=== PATIENT | female | born 1980 | race Caucasian/White ===

== ENCOUNTER 2020-01-04 11:09 | Outpatient (REF) | payer BC, SELFPAY ==
[2020-01-04 14:13] LABS: MANUAL DIFF FLAG NO
[2020-01-04 14:19] LABS: Basophils Absolute Auto 0.1 X10*3/uL (0.0-0.2); Basophils Percent Auto 0.6 % (0-2); Eosinophils Absolute Auto 0.4 X10*3/uL (0.0-0.4); Eosinophils Percent Auto 4.4 % (0-4); Hematocrit 40.6 % (37-47); Hemoglobin 13.2 g/dl (12.0-16.0); Imm Gran Abs Auto 0.02 X10*3/uL (0.00-0.03); Imm Gran Pct Auto 0.2 % (0.0-0.4); Lymphocytes Absolute Auto 2.2 X10*3/uL (1.2-4.9); Lymphocytes Percent Auto 26.1 % (20-40); Mean Corpuscular HGB Conc 32.5 g/dl (31.0-35.0); Mean Corpuscular Hemoglobin 30.6 pg (27.0-33.0); Mean Platelet Volume 10.7 fL (9.4-12.3); Monocytes Absolute Auto 0.8 X10*3/uL (0.1-1.2); Monocytes Percent Auto 9.4 % (2-11); Neutrophils Absolute Auto 5.1 X10*3/uL (2.0-8.3); Neutrophils Percent Auto 59.3 % (45-73); Platelet Count 294 X10*3/uL (160-400); Red Blood Count 4.32 X10*6/uL (4.20-5.50); White Blood Count 8.6 X10*3/uL (4.8-10.8)
[2020-01-04 15:14] LABS: Alanine Aminotransferase 17 U/L (0-31); Albumin Level 4.5 g/dL (3.5-5.0); Alkaline Phosphatase 93 U/L (39-117); Anion Gap 10 (12-20); Aspartate Amino Transferase 19 U/L (5-31); Bilirubin Direct 0.2 mg/dL (0.0-0.5); Bilirubin Total 0.5 mg/dL (0.0-1.0); Blood Urea Nitrogen 16 mg/dL (9-16); C Reactive Protein 0.24 mg/dL (< or = 0.50); Carbon Dioxide 28 mmol/L (22-29); Chloride 104 mmol/L (96-108); Estimated Glomerular Filt Rate > 60; Glucose Random 71 mg/dL (60-115); Potassium 4.2 mmol/l (3.3-5.1); Sodium 138 mmol/L (135-145); Total Protein 7.6 g/dL (6.5-8.0)
[2020-01-04 15:18] LABS: Erythrocyte Sedimentation Rate 18 MM/HR (0-20)
[2020-01-04 15:35] LABS: Thyroid Stimulating Hormone 0.86 mIU/mL (0.32-4.0)
[2020-01-04 15:49] LABS: T4 Thyroxine 9.7 ug/dL (4.5-12.0)
== END 2020-01-04 11:10 | disposition home or self-care (01) ==
LOC: HO.HMGCLDS 11:09
PROVIDERS: PCP Family Medicine; Visit Provider Internal Medicine
DX: K50.80 Crohn's disease of both small and large intestine without complications (principal); R19.7 Diarrhea, unspecified
CPT/HCPCS: 36415; 80048; 80076; 84436; 84443; 85025; 85652; 86140

== ENCOUNTER 2021-03-23 09:08 | Outpatient (REF) | payer BC, SELFPAY ==
[2021-03-23 09:27] LABS: MANUAL DIFF FLAG NO
[2021-03-23 09:55] LABS: Basophils Absolute Auto 0.1 X10*3/uL (0.0-0.2); Basophils Percent Auto 0.5 % (0-2); Eosinophils Absolute Auto 0.6 X10*3/uL (0.0-0.4); Eosinophils Percent Auto 5.9 % (0-4); Hematocrit 43.9 % (37.0-47.0); Hemoglobin 14.7 g/dl (12.0-16.0); Imm Gran Abs Auto 0.03 X10*3/uL (0.00-0.03); Imm Gran Pct Auto 0.3 % (0.0-0.4); Lymphocytes Absolute Auto 2.4 X10*3/uL (1.2-4.9); Lymphocytes Percent Auto 25.5 % (20-40); Mean Corpuscular HGB Conc 33.5 g/dl (31.0-35.0); Mean Corpuscular Hemoglobin 30.4 pg (27.0-33.0); Mean Corpuscular Volume 90.7 fL (80.0-98.0); Monocytes Absolute Auto 0.7 X10*3/uL (0.1-1.2); Monocytes Percent Auto 7.6 % (2-11); Neutrophils Absolute Auto 5.7 x10*3/uL (2.0-8.3); Neutrophils Percent Auto 60.2 % (45-73); Platelet Count 279 X10*3/uL (160-400); Red Blood Count 4.84 X10*6/uL (4.20-5.50); Red Cell Distribution Width 12.9 % (11.0-16.0); White Blood Count 9.4 X10*3/uL (4.8-10.8)
[2021-03-23 10:21] LABS: Alanine Aminotransferase 30 U/L (0-31); Albumin Level 4.4 g/dL (3.5-5.0); Alkaline Phosphatase 121 U/L (39-117); Anion Gap 10 (12-20); Aspartate Amino Transferase 30 U/L (5-31); Bilirubin Direct 0.2 mg/dL (0.0-0.5); Bilirubin Total 0.8 mg/dL (0.0-1.0); Blood Urea Nitrogen 16 mg/dL (9-16); Calcium 9.5 mg/dL (8.4-10.2); Carbon Dioxide 27 mmol/L (22-29); Chloride 105 mmol/L (96-108); Estimated Glomerular Filt Rate > 60; Glucose Random 83 mg/dL (60-115); Iron 123 mcg/dL (30-160); Percent Iron Saturation 32 % (15-50); Potassium 3.9 mmol/L (3.3-5.1); Sodium 138 mmol/L (135-145); Total Iron Binding Capacity 382 mcg/dL (228-428); Unsaturated Iron Binding 259 ug/dL
[2021-03-23 10:40] LABS: Ferritin 33 ng/mL (10-122)
[2021-03-23 10:54] LABS: Folate > 20.0 ng/mL (> or = 4.0); Vitamin B12 1145 pg/mL (200-900)
== END 2021-03-23 09:09 | disposition home or self-care (01) ==
LOC: HO.LAB 09:08
PROVIDERS: PCP Family Medicine; Visit Provider Internal Medicine
DX: K50.80 Crohn's disease of both small and large intestine without complications (principal)
CPT/HCPCS: 36415; 80048; 80076; 82607; 82728; 82746; 83540; 85025

== ENCOUNTER 2023-01-01 07:33 | Outpatient (REF) | payer BC, SELFPAY ==
[2023-01-01 11:35] LABS: MANUAL DIFF FLAG NO
[2023-01-01 11:49] LABS: Basophils Absolute Auto 0.1 X10*3/uL (0.0-0.2); Basophils Percent Auto 0.7 % (0-2); Eosinophils Absolute Auto 0.4 X10*3/uL (0.0-0.4); Eosinophils Percent Auto 4.9 % (0-4); Hematocrit 41.1 % (37.0-47.0); Hemoglobin 13.9 g/dl (12.0-16.0); Imm Gran Abs Auto 0.03 X10*3/uL (0.00-0.03); Imm Gran Pct Auto 0.3 % (0.0-0.4); Lymphocytes Absolute Auto 2.2 X10*3/uL (1.2-4.9); Lymphocytes Percent Auto 25.4 % (20-40); Mean Corpuscular HGB Conc 33.8 g/dl (31.0-35.0); Mean Corpuscular Hemoglobin 30.9 pg (27.0-33.0); Mean Corpuscular Volume 91.3 fL (80.0-98.0); Mean Platelet Volume 10.8 fL (9.4-12.3); Monocytes Absolute Auto 0.7 X10*3/uL (0.1-1.2); Monocytes Percent Auto 7.6 % (2-11); Neutrophils Absolute Auto 5.4 x10*3/uL (2.0-8.3); Neutrophils Percent Auto 61.1 % (45-73); Platelet Count 273 X10*3/uL (160-400); Red Cell Distribution Width 12.5 % (11.0-16.0); White Blood Count 8.8 X10*3/uL (4.8-10.8)
[2023-01-01 12:13] LABS: Alanine Aminotransferase 18 U/L (0-31); Albumin Level 4.2 g/dL (3.5-5.0); Alkaline Phosphatase 90 U/L (39-117); Anion Gap 13 (12-20); Aspartate Amino Transferase 22 U/L (5-31); Bilirubin Direct 0.2 mg/dL (0.0-0.5); Bilirubin Total 0.5 mg/dL (0.0-1.0); Blood Urea Nitrogen 15 mg/dL (9-16); Carbon Dioxide 23 mmol/L (22-29); Chloride 107 mmol/L (96-108); Estimated Glomerular Filt Rate > 60; Glucose Random 76 mg/dL (60-115); Iron 128 mcg/dL (30-160); Percent Iron Saturation 38 % (15-50); Sodium 139 mmol/L (135-145); Total Iron Binding Capacity 333 mcg/dL (228-428); Total Protein 7.5 g/dL (6.5-8.0); Unsaturated Iron Binding 205 ug/dL
[2023-01-01 12:32] LABS: Ferritin 21 ng/mL (10-250)
[2023-01-01 12:40] LABS: Folate 11.8 ng/mL (> or = 4.0); Vitamin B12 503 pg/mL (200-900)
== END 2023-01-01 07:34 | disposition home or self-care (01) ==
LOC: HO.HMGCLDS 07:33
PROVIDERS: PCP Nurse Practitioner Primary Care; Visit Provider Internal Medicine
DX: K50.80 Crohn's disease of both small and large intestine without complications (principal)
CPT/HCPCS: 36415; 80051; 80076; 82565; 82607; 82728; 82746; 82947; 83540; 84520; 85025

== ENCOUNTER 2023-01-06 06:25 | Day surgery (SDC) | payer BC, SELFPAY ==
--- NOTE | 2023-01-02 13:48 | P.CONAN_ITS ---
Documented by User: Evelina Nieves NP 01/02/23 13:51 HPI - Anesthesia Eval Consult details Narrative: 42yo F for Colonoscopy PMFSH Past Medical History Medical History STEPHY (iron deficiency anemia) Crohn's disease Ulcerative colitis Surgical History Surgical History History of ERCP Hx of section Hx of colonoscopy Social History Social History Patient Tobacco Use Status: Never used Tobacco Use of substances other than those prescribed or required for medical reasons: No Are you DNR?: No Advance Directives: No Advance Directives Information Provided: Yes Recently lost weight without trying: No Nutrition Risks: No Nutritional Risk Meds Allergies Allergy/AdvReac Type Severity Reaction Status Date / Time latex [Latex] Allergy Intermediate RASH Unverified 12/09/19 16:23 Home Medications Medication Instructions Recorded Confirmed Last Taken Type Fish Oil 01/02/23 Unknown History iron 01/02/23 Unknown History mesalamine 500 mg capsule,extended 1,000 mg PO QID 01/02/23 01/02/23 Unknown History release (Pentasa) norethindrone (contraceptive) 0.35 0.35 mg PO DAILY 01/02/23 01/02/23 Unknown History mg tablet (Incassia) Exam Exam Date and Time: January 02, 2023 1348 Assessment and Plan Assessment Anesthesia Assessment: Chart Reviewed Documented by User: Airam De La Cruz MD 01/06/23 07:58 PMF Past Medical History Medical History STEPHY (iron deficiency anemia) Crohn's disease Ulcerative colitis Family History Family history of problems with anesthesia: No Surgical History Surgical History History of ERCP Hx of section Hx of colonoscopy History of Problems with Anesthesia: No Social History Social History Patient Tobacco Use Status: Never used Tobacco Use of substances other than those prescribed or required for medical reasons: No Are you DNR?: No Advance Directives: No Advance Directives Information Provided: Yes Recently lost weight without trying: No Nutrition Risks: No Nutritional Risk Meds Allergies Allergy/AdvReac Type Severity Reaction Status Date / Time latex [Latex] Allergy Intermediate RASH Unverified 12/09/19 16:23 Home Medications Medication Instructions Recorded Confirmed Last Taken Type Fish Oil 01/02/23 Unknown History iron 01/02/23 Unknown History mesalamine 500 mg capsule,extended 1,000 mg PO QID 01/02/23 01/02/23 Unknown History release (Pentasa) norethindrone (contraceptive) 0.35 0.35 mg PO DAILY 01/02/23 01/02/23 Unknown History mg tablet (Incassia) Exam Height,Weight and Vital Signs: Height 5 ft 7 in Weight 52.163 kg Vital Signs Temp Pulse Resp BP Pulse Ox O2 Del Method 01/06/23 06:47 97.5 F 98 17 106/75 97 Room Air Pertinent Lab Results Pertinent Lab Results: Lab Results 01/06/23 Range/Units 07:40 Urine Test NEGATIVE (NEGATIVE) Airway Mallampati Class: I TM Dist: >3cm Neck ROM: Full Loose/Missing/Broken Teeth: No (Denies broken, loose, missing teeth) Heart: RRR Lungs: CTAB Assessment and Plan Assessment Anesthesia Assessment: Anesthesia Plan Discussed Final Anesthetic Review Family History of Problems with Anesthesia: No History of Problems with Anesthesia: No NPO: Yes ASA Class: II Final Preanesthetic Review: No Changes in Pt Med Stat, Meds/Allgs Chart Revie wed, Consent Obtained/Reviewed and Anes Risks/Benef Reviewed Patient Risk: Low Procedure Risk: Low Assessment/Block/Sedation in SS: Assess/Block/Sedation-SS Anesthetic Plan Anesthetic Plan: MAC: Disposition: Standard PACU
--- OUTSIDE RECORDS SUMMARY | 2023-01-06 06:28 | XMS_ITS | Continuity of Care Document ---
Author Name Unknown Organization [facility] Justin lt Address [address] [place] [address]- Care Team Providers Care Animal Herder Name Role Phone Chava TAYLOR, Elvia Yadav Primary Care Physician [phone] Encounter [facility] [place] [place] [id number] Date(s): 09/23/22 - 10/23/22 [facility] Adult [address] [place] [address]- Attending Physician: AdmtrYuliya Admitting Physician: Admtr, Ar8 Referring Physician: Admtr, Ar8 Allergies, Adverse Reactions, Alerts No Known Allergies Immunizations Given and Recorded Vaccine Date Status Refusal Reason tetanus/diphtheria/pertussis, acel(Tdap) 09/23/22 Given [id number] 12y+ bivalent booster vax 09/23/22 Given SARS-CoV-2 (COVID-19) mRNA BNT-162b2 vac 07/26/20 Given SARS-CoV-2 (COVID-19) mRNA BNT-162b2 vac 07/05/20 Given Medications Digestive Enzymes/Hyoscyamine/Phenyltoloxamin 0 Refills, Maintenance, 09/23/22 10:22:00 EDT, Partial fill upon patient request if the prescription is for a schedule II opioid drug. Start Date: 09/23/22 Status: Ordered Incassia 0.35 mg oral tablet 1 tablet = 0.35 mg, By Mouth, Daily, 0 Refills, Maintenance, 09/23/22 10:22:00 EDT, Partial fill upon patient request if the prescription is for a schedule II opioid drug. Start Date: 09/23/22 Status: Ordered iron sulfate By Mouth, 0 Refills, Maintenance, 09/23/22 10:23:00 EDT, Partial fill upon patient request if the prescription is for a schedule II opioid drug. Start Date: 09/23/22 Status: Ordered melatonin 5 mg oral capsule 1 capsule = 5 mg, By Mouth, Daily at bedtime, 0 Refills, Maintenance, 09/23/22 10:23:00 EDT, Partial fill upon patient request if the prescription is for a schedule II opioid drug. Start Date: 09/23/22 Status: Ordered Misc Rx See Instructions, Refills 0, Maintenance, Blue green algae, 09/23/22 10:22:00 EDT, Supply Start Date: 09/23/22 Status: Ordered Misc Rx See Instructions, Refills 0, Maintenance, Sereni select DOTTIE, 09/23/22 10:25:00 EDT, Supply Start Date: 09/23/22 Status: Ordered Pentasa 500 mg oral capsule, extended release 2 capsule = 1,000 mg, By Mouth, 4 times a day, 0 Refills, Maintenance, 09/23/22 10:21:00 EDT, Partial fill upon patient request if the prescription is for a schedule II opioid drug. Start Date: 09/23/22 Status: Ordered Probiotic Formula By Mouth, Daily, 0 Refills, Maintenance, 09/23/22 10:23:00 EDT, Partial fill upon patient request if the prescription is for a schedule II opioid drug. Start Date: 09/23/22 Status: Ordered Problem List Condition Confirmation Course Effective Dates Status Health St atus Informant Crohn's disease Confirmed Active Depression, major, single episode, moderate Confirmed Active Encounter to establish care Confirmed Active Annual physical exam Confirmed Active Underweight Confirmed Active Social History Social History Type Response Smoking Status Never (less than 100 in lifetime) entered on: 09/25/22 Sex Laboratory * Event Display: Non Lab Results Authored Date: Patient Care team information Care Team Personnel Name: Elvia Larsen NP Position: [facility] PCO Associate Professional Member Role: PCP Address: Address: [address] [place] [address]- Care Team Related Persons Name: PAU MARINELLI Address: home [address] [place] [address] Name: ALEX MARINELLI Address: home [address] [place] [address]
--- OUTSIDE RECORDS SUMMARY | 2023-01-06 06:28 | XMS_ITS | Continuity of Care Document ---
Author Name Unknown Organization [facility] Address [address] [place] [address]- Care Team Providers Care Betting Clerks Name Role Phone Aris MA, Caren Yadav Primary Care Physician Unav ailable Encounter [facility] Date(s): 04/29/19 - 04/29/19 [place] [address]- [facility] Attending Physician: Silvia Dozier NP Allergies, Adverse Reactions, Alerts Substance Reaction Severity Status NKA Active
--- OUTSIDE RECORDS SUMMARY | 2023-01-06 06:28 | XMS_ITS | Patient Health Record ---
Author Name Unknown Organization [facility] Address [address] [place] [address] Care Team Providers Care Vehicle Fuel Systems Converter Name Role Phone DR. RANDALL ANSARI Primary Care Provider Unavail able Jw Vizcarra Unavailable [phone] ALLERGIES No Known Allergies RESULTS Component Value Reference Range Notes Complete Blood Count Auto Di ff Reviewed date:01/01/2023 09:13:59 PM Interpretation: Performing Lab:[facility], [address] [place] [phone] Notes/Report: White Blood Count 8.8 4.8-10.8 X10*3/uL Red Blood Count 4.50 4.20-5.50 X10*6/uL Hemoglobin 13.9 12.0-16.0 g/dl Hematocrit 41.1 37.0-47.0 % Mean Corpuscular Volume 91.3 80.0-98.0 fL Mean Corpuscular Hemoglobin 30.9 27.0-33.0 pg Mean Corpuscular HGB Conc 33.8 31.0-35.0 g/dl Red Cell Distribution Width 12.5 11.0-16.0 % Platelet Count 273 160-400 X10*3/uL Mean Platelet Volume 10.8 9.4-12.3 fL Neutrophils Percent Auto 61.1 45-73 % Imm Gran Pct Auto 0.3 0.0-0.4 % Lymphocytes Percent Auto 25.4 20-40 % Monocytes Percent Auto 7.6 2-11 % Eosinophils Percent Auto 4.9 0-4 % Basophils Percent Auto 0.7 0-2 % NRBC Pct Auto 0.0 0.0-0.2 /100WBC Neutrophils Absolute Auto 5.4 2.0-8.3 x10*3/u L Imm Gran Abs Auto 0.03 0.00-0.03 X10*3/uL Lymphocytes Absolute Auto 2.2 1.2-4.9 X10*3/u L Monocytes Absolute Auto 0.7 0.1-1.2 X10*3/uL Eosinophils Absolute Auto 0.4 0.0-0.4 X10*3/u L Basophils Absolute Auto 0.1 0.0-0.2 X10*3/uL NRBC Abs Auto 0.000 0.0-0.012 X10*3/uL Liver Panel Reviewed date:01/01/2023 09:14:22 PM Interpretation: Performing Lab:[facility], [address] [place] [phone] Notes/Report: Bilirubin Total 0.5 0.0-1.0 mg/dL Bilirubin Direct 0.2 0.0-0.5 mg/dL Aspartate Amino Transferase 22 5-31 U/L Alanine Aminotransferase 18 0-31 U/L Total Protein 7.5 6.5-8.0 g/dL Albumin Level 4.2 3.5-5.0 g/dL Alkaline Phosphatase 90 39-117 U/L Electrolytes Reviewed date:01/01/2023 09:14:48 PM Interpretation: Performing Lab:[facility], [address] [place] [phone] Notes/Report: Sodium 139 135-145 mmol/L Potassium 4.0 3.3-5.1 mmol/L Chloride 107 96-108 mmol/L Carbon Dioxide 23 22-29 mmol/L Anion Gap 13 12-20 Blood Urea Nitrogen Reviewed date:01/01/2023 09:14:57 PM Interpretation: Performing Lab:[facility], [address] [place] [phone] Notes/Report: Blood Urea Nitrogen 15 9-16 mg/dL Creatinine Reviewed date:01/01/2023 09:15:07 PM Interpretation: Performing Lab:[facility], [address] [place] [phone] Notes/Report: Creatinine 0.77 0.5-1.4 mg/dL Estimated Glomerular Filt Rate > 60 NOTE: For -Citizen Of The [place] individuals, multiply the result by 1.210. Chronic Kidney Disease: Estimated GFR < 60 mL/min/1.73m2 Severe Kidney Disease: Estimated GFR < 15 mL/min/1.73m2 Glucose Random Reviewed date:01/01/2023 09:15:16 PM Interpretation: Performing Lab:[facility], [address] [place] [phone] Notes/Report: Glucose Random 76 60-115 mg/dL IRON PROFILE Reviewed date:01/01/2023 09:15:28 PM Interpretation: Performing Lab:[facility], [address] [place] [phone] Notes/Report: Iron 128 30-160 mcg/dL Total Iron Binding Capacity 333 228-428 mcg/d L Percent Iron Saturation 38 15-50 % Unsaturated Iron Binding 205 Ferritin Reviewed date:01/01/2023 09:15:38 PM Interpretation: Performing Lab:[facility], [address] [place] [phone] Notes/Report: Ferritin 21 10-250 ng/mL Vitamin B12 and Folate Reviewed date:01/01/2023 09:18:35 PM Interpretation: Performing Lab:[facility], [address] [place] [phone] Notes/Report: Vitamin B12 503 200-900 pg/mL NORMAL 200-900 PG/ML INDETERMINATE 160-199 PG/ML DEFICIENT < 160 PG/ML Folate 11.8 > or = 4.0 ng/mL Reference Values: > or = 4.0 ng/mL < 4.0 ng/mL suggests folate deficiency Methotrexate, aminopterin and folinic acid (leucovorin) are chemotherapeutic agents whose molecular structures are similar to folate; therefore, the Elementary Esl Teacher folate assay cannot be used for patients using these drugs. REASON FOR REFERRAL No Information MEDICATIONS Medication SIG (Take, Route, Frequency, Duration) Notes Start Date End Date Status Norethindrone 0.35 MG 1 tablet Orally On ce a day for 28 day(s) Active Pentasa 500 MG 2 capsules Orally Fo ur times a day for 30 day(s) Active Iron Active Enzyme Active Ibuprofen PRN Not-Taking Fish Oil Active IMMUNIZATIONS Vaccine Route Administration Date Status Comme nts Influenza Unknown 02/10/2018 Administered Influenza Unknown 02/06/2021 Administered Influenza Unknown 05/04/2019 Refused SOCIAL HISTORY Sex Assigned At : Social History Observation Description Sex Assigned At Unknown Alcohol Screen Question Answer Notes Did you have a drink contain ing alcohol in the past year? Yes How often did you have a dri nk containing alcohol in the past year? Monthly or less (1 point) How many drinks did you have on a typical day when you were drinking in the past year? 1 or 2 drinks (0 point) How often did you have 6 or more drinks on one occasion in the past year? Never (0 point) Points 1 Interpretation Negative PROBLEMS Problem Type ICD Code Onset Dates Problem Status W/U Status Risk SNOMED Code Notes Problem Colon cancer screening (Z12.11) Active confirmed 179675547 Problem Encounter for screening for malignant neoplasm of colon (Z12.11) Active confirmed 662887971 Problem Diarrhea (R19.7) Active confirmed Diarr hea (81528033) Problem Crohn's disease of both small and large intestine without complications (K50.80) Active confirmed Crohn's disease of small AND large intestines (52366797) Problem Encounter for screening for malignant neoplasm of rectum (Z12.12) Active confirmed Screening fo r malignant neoplasm of rectum (663105899) Problem Crohns disease of both small and large intestine without complication (K50.80) Active confirmed 34504055 Problem Iron deficiency anemia due to chronic blood loss (D50.0) Active confirmed 35786047 Problem Abdominal pain, right upper quadrant (R10.11) Active confirmed 481436222 Problem Elevated alkaline phosphatase level (R74.8) Active confirmed 848434773 Encounters Encounter Location Date Provider Diagnosis [facility] [facility] [address] [place] [phone] 01/06/2023 Jw Vizcarra [facility] [address] [place] [phone] 09/10/2022 Jw Vizcarra Crohn's disease of both small and large intestine without complications K50.80 and Colon cancer screening Z12.11 [facility] [address] [place] [phone] 05/13/2022 Jw Vizcarra [facility] [address] [place] [phone] 12/31/2022 Jw Vizcarra [facility] [address] [place] [phone] 12/31/2022 Jw Vizcarra ASSESSMENTS Encounter Date Diagnosis Assessment Notes Treatment Notes Treatment Clinical Notes 09/10/2022 Colon cancer screening (ICD-10 - Z12.11) 09/10/2022 Crohn's disease of both small and large intestine without complications (ICD-10 - K50.80) Continue 2 Pentasa three times a day. PLAN OF TREATMENT Pending Test Test Name Order Date CHEM 7 PROFILE 03/06/2021 CHEM 7 PROFILE 08/27/2011 CHEM 7 PROFILE 09/10/2022 CHEM 7 PROFILE 01/04/2020 CHEM 7 PROFILE 01/03/2016 HEMOGLOBIN A1C (GLYCOHEMOGLOBIN) 018 LIVER PROFILE 01/04/2020 LIVER PROFILE 01/03/2016 LIVER PROFILE 09/10/2016 LIVER PROFILE 03/06/2021 LIVER PROFILE 08/27/2011 LIVER PROFILE 09/10/2022 LIVER PROFILE 05/08/2019 URIC ACID 07/29/2017 GGT 05/08/2019 T4 (THYROXINE) 01/04/2020 TSH (THYROID STIMULATING HORMONE) 2019 IRON + IBC (FE) 09/10/2016 IRON + IBC (FE) 01/09/2016 IRON + IBC (FE) 03/06/2021 IRON + IBC (FE) 09/10/2022 IRON + IBC (FE) 07/29/2017 FERRITIN 09/10/2016 FERRITIN 01/09/2016 FERRITIN 07/29/2017 CRP 07/29/2017 CRP 01/04/2020 CRP 09/10/2016 VITAMIN B12 AND FOLATE 07/29/2017 VITAMIN B12 AND FOLATE 03/06/2021 VITAMIN B12 AND FOLATE 01/09/2016 CBC w DIFF 09/10/2016 CBC w DIFF 01/03/2016 CBC w DIFF 07/29/2017 CBC w DIFF 08/27/2011 CBC w DIFF 01/04/2020 CBC w DIFF 09/10/2022 CBC w DIFF 03/06/2021 SED RATE (ESR) 01/04/2020 SED RATE (ESR) 09/10/2016 SED RATE (ESR) 07/29/2017 CORTISOL 07/29/2017 DHEA-SULFATE 07/29/2017 DHEA, UNCONJUGATED 07/29/2017 CELIAC PANEL #10 01/09/2016 CELIAC PANEL #10 07/29/2017 HOMOCYSTEINE 07/29/2017 MITOCHONDRIAL AB 05/08/2019 LIVER KIDNEY MICROSOMAL AB (LKM AB) 04/24 SMOOTH MUSCLE ANTIBODIES 05/08/2019 VITAMIN B6 07/29/2017 MTHFR GENOTYPE(C677T MUTATION) 8 FLUOR. ANTINUCLEAR AB SCREEN (GISELLE) 04/24 VITAMIN D 25-OH TOTAL 07/29/2017 H. PYLORI IGG 07/29/2017 Ferritin 09/10/2022 Ferritin 03/06/2021 Vitamin B12 and Folate 09/10/2022 Future Test Test Name Order Date COLONOSCOPY 01/03/2016 COLONOSCOPY 05/04/2019 COLONOSCOPY 09/10/2022 Next Appt Details Provider Name:Jw Vizcarra , 01/06/2023 07:30:00 AM, [address] [place] [address] , [place], [place], [phone], Insurance Providers Payer Name Payer Address Payer Phone Subscriber Number Group Number Insured Name Patient Relationship to Insured Coverage Start Date Coverage End Date [facility] [address] [place] [address] [id number] LUIS OKEEFE Self - patient is the insured MEDICAL (GENERAL) HISTORY Medical History History ICD Code ulcerative colitis-diagnosed in 2000 when she presented with anemia and diarrhea, and a colonoscopy at that time revealed evidence of active colitis throughout the colon. She also had elevated LFTs at that time and a positive SILVA, with a workup including ERCP and liver biopsy raising a suspicion for possible primary sclerosing cholangitis. However, once her colitis was treated and her symptoms came under control, her liver studies normalized and she has had no further problem in that regard. Her colonoscopy in 2016 changed the diagnosis to Crohn's disease--see below Denies TN,DM,CVA,Lung disease,renal dise ase Cervical dysplasia-followed by her COVERING MACHINE TENDER She has had colonoscopies in May of 2008 and May of 2010--these have both been negative for any sign of active colitis, polyps, nor dysplasia Colonoscopy 05/2013--no activ e colitis nor adenomas--all biopsies were neg for dysplasia Crohn's disease---Colonoscop y in May of 2016 revealed very active colitis, ileitis, deformed ileocecal valve, cobblestoning, and a spared rectal mucosa--biopsy were negative for dysplasia and negative for granulomas--Followup SB series was essentially normal Iron deficiency anemia Colonoscopy - September 2019--thi s revealed active Crohn's in the terminal ileum and ascending colon; biopsies throughout the colon were negative for dysplasia. Surgical History Surgery Date(Month/Year)
--- OUTSIDE RECORDS SUMMARY | 2023-01-06 06:28 | XMS_ITS | Continuity of Care Document ---
Author Name Unknown Organization [facility] [place] [address] [place] [address]- Care Team Providers Care Commercial Leasing Agent Name Role Phone Chava TAYLOR, Elvia Yadav Primary Care Physician Encounter 10/08/22 - 10/15/22 [facility] [address], [address] [place] [address]- Attending Physician: Elvia Larsen NP Admitting Physician: Elvia Larsen NP Referring Physician: Elvia Larsen NP Allergies, Adverse Reactions, Alerts No Known Allergies Immunizations Given and Recorded Vaccine Date Status Refusal Reason tetanus/diphtheria/pertussis, acel(Tdap) 09/23/22 Given [id number] 12y+ bivalent booster vax 09/23/22 Given SARS-CoV-2 [...] physical exam Confirmed Active Underweight Confirmed Active Results Radiology Reports * Exam Date Time Procedure Performing Provider Status 10/08/22 10:39 AM MM Digital Mammo Screening Lexx Robin; Auth (Verified) Notes: (MM Digital Mammo Screening) Reason For Exam: Z12.31 SCREENING RESULT: MM Digital Mammo Screening PROCEDURE: MM Digital Mammo Screening INDICATION: Screening for breast cancer. No known palpable abnormalities. COMPARISON: No prior. TECHNIQUE: Full-field digital CC and MLO 3D tomosynthesis images of both breasts were acquired. Computer-aided detection (CAD) was utilized in the interpretation of this study. DENSITY: The breast tissue is extremely dense, which lowers the sensitivity of mammography. FINDINGS: This is a baseline mammogram. No suspicious masses, suspicious microcalcifications, or areas of architectural distortion are seen in either breast to suggest malignancy. IMPRESSION: No mammographic evidence of malignancy. RECOMMENDATION: Annual mammographic screening BI-RADS: 1 (Negative) Lay letter mailed to patient WSN: [id number] Ordering Physician: Elvia Larsen Dictated By: Courtney Gambino MD Dictated Date/Time: 10/08/22 11:16 am Reviewed By: Courtney Gambino MD Signed By: Courtney Gambino MD Signed Date/Time: 10/08/22 11:16 am Transcribed By: THEODORE Car Storer Date/Time: 10/08/22 10:51 am Birads: Social History Social History Type Response Smoking Status Never (less than 100 in lifetime) entered on: 09/25/22 Sex Patient Care team information Care Team Personnel Name: Elvia Larsen NP Position: [facility] PCO Associate Professional Member Role: PCP Address: Address: [address] [place] [address] Care Team Related Persons Name: PAU MARINELLI Address: home [address] [place], [place] [id number] Name: ALEX MARINELLI Address: home [address] [place] [address]
--- OUTSIDE RECORDS SUMMARY | 2023-01-06 06:28 | XMS_ITS | Continuity of Care Document ---
Author Name Unknown Organization [facility] Justin lt Address [address] [place] [address]- Care Team Providers Care Correctional Manager Name Role Phone Chava TAYLOR, Elvia Yadav Primary Care Physician Encounter [facility] ACCT R [id number] Date(s): 09/23/22 - 10/23/22 [facility] Adult [address] [place] [address]- Attending Physician: Admtr, Ar8 Admitting Physician: Admtr, Ar8 Referring Physician: Admtr, Ar8 Allergies, Adverse Reactions, Alerts No Known Allergies Immunizations Given and Recorded Vaccine Date Status Refusal Reason tetanus/diphtheria/pertussis, acel(Tdap) 09/23/22 Given [id number] 12y+ bivalent booster vax 09/23/22 Given SARS-CoV-2 [...] Team Personnel Name: Elvia Larsen NP Position: S PCO Associate Professional Member Role: PCP Address: Address: [address] [place] [address]- Care Team Related Persons Name: PAU MARINELLI Address: home [address] [place] [id number] Name: ALEX MARINELLI Address: home [address] [place] [id number]
--- OUTSIDE RECORDS SUMMARY | 2023-01-06 06:28 | XMS_ITS | Continuity of Care Document ---
Author Name Unknown Organization [facility] Justin lt Address [address] [place] [address]- Care Team Providers Care Compounding Technician Name Role Phone Chava TAYLOR, Elvia Yadav Primary Care Physician Encounter [facility] Date(s): 09/27/22 - 10/27/22 [facility] Adult [address] [place] [address]- Allergies, Adverse Reactions, Alerts No Known Allergies Immunizations Given and Recorded Vaccine Date Status Refusal Reason tetanus/diphtheria/pertussis, acel(Tdap) 09/23/22 Given [id number] 12y+ bivalent booster vax 09/23/22 Given SARS-CoV-2 [...] Associate Professional Member Role: PCP Address: Address: [address] [place] [id number] Care Team Related Persons Name: PAU MARINELLI Address: home [address] [place] [id number] Name: ALEX MARINELLI Address: home [address] [place] [phone]
--- OUTSIDE RECORDS SUMMARY | 2023-01-06 06:28 | XMS_ITS | Continuity of Care Document ---
Author Name Unknown Organization [facility] Kacey Rooney [facility] Address [address] [place] [id number] Care Team Providers Care Spanish Linguist Name Role Phone Chava TAYLOR, Elvia Yadav Primary Care Physician Encounter [facility] Date(s): 10/11/22 - 11/10/[address] [id number]- Allergies, Adverse Reactions, Alerts No Known Allergies Immunizations Given and Recorded Vaccine Date Status Refusal Reason tetanus/diphtheria/pertussis, acel(Tdap) 09/23/22 Given [id number] 12y+ bivalent booster vax 09/23/22 Given SARS-CoV-2 [...] Associate Professional Member Role: PCP Address: Address: [address] [place] [id number]- Care Team Related Persons Name: PAU MARINELLI Address: home [address] [place] [id number] Name: ALEX MARINELLI Address: home [address] [place] [id number]
[2023-01-06 06:47] VITALS: BP 106/75; PULSE 98; RESP 17; TEMP 36.4; O2SAT 97; BMI 18.0; BMI 39.7
[2023-01-06 07:50] LABS: UPreg QC Valid YES; Urine Pregnancy NEGATIVE (NEGATIVE)
[2023-01-06 08:42] VITALS: BP 106/73; PULSE 75; RESP 20; TEMP 36.2; O2SAT 100
--- NOTE | 2023-01-06 08:47 | P.BOP_ITS ---
Brief Operative Note Date of Service: 01/06/23 Pre-op diagnosis: Crohn's disease, Screening Post-op diagnosis: other (Same) Procedure: Colonoscopy to the cecum and TI with biopsies Surgeon: Jw Vizcarra MD Anesthesia: MAC Was an Hotel Reservation Agent used for this Procedure?: No Estimated blood loss (mL): 3.0 Pathology: other (A. Terminal ileum B. Cecum C. Ascending colon D. Transverse colon E. Descending colon F. Sigmoid colon G. Rectum) Condition: stable Disposition: PACU
[2023-01-06 08:57] VITALS: BP 113/73; PULSE 73; RESP 18; TEMP 36.4; O2SAT 100
--- NOTE | 2023-01-06 11:48 | OP_ITS ---
DATE OF SERVICE: 01/06/2023 SURGEON: Jw Vizcarra MD INDICATIONS: The patient presents for evaluation of underlying history of Crohn'sdisease, involving the terminal ileum and colon, and colorectal cancer screening. Full consent obtained from her for this, including risks of bleeding and perforation. PREOPERATIVE DIAGNOSIS: POSTOPERATIVE DIAGNOSIS: PROCEDURE PERFORMED: Colonoscopy to the cecum and terminal ileum with multiple biopsies. ESTIMATED BLOOD LOSS: COMPLICATIONS: ANESTHESIA: Monitored anesthesia care. ASSISTANTS: SPECIMENS: PREOPERATIVE DIAGNOSES: Crohn's disease involving the terminal ileum and colon, colorectal cancer screening. POSTOPERATIVE DIAGNOSES: Crohn's disease involving the terminal ileum and colon, colorectal cancer screening, rule out dysplasia. DESCRIPTION OF PROCEDURE: The patient was placed in the left lateral decubitus position. The digital rectal exam revealed no abnormalities. There was no perianal disease. The [employer] video pediatric colonoscope was entered into the rectum and advanced easily to the cecum. 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 I did cannulate the terminal ileum for at least 10 or 20 cm. For the most part this area appeared normal other than the portion right near the ileocecal valve. Biopsies were obtained from the terminal ileum. The scope was withdrawn back into the colon. 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 There was no stricture. The cecum itself had some inflammatory polyps and some signs of colitis. There were no masses. The tissue was friable. Biopsies were obtained from the cecum. The scope was then slowly withdrawn assessing all mucosal surfaces carefully. Preparation was excellent. I did not visualize any sign of active colitis elsewhere in the colon, polyps, nor angiodysplasia. Some of the tissue was edematous and friable. Multiple biopsies were obtained in the ascending colon, transverse colon, descending colon, sigmoid colon and rectum. The rectal mucosa appeared normal both in the forward viewing and retroflexed positions. Internal hemorrhoids were noted. The scope was withdrawn from the patient. She tolerated the procedure well and was returned to recovery area in stable condition. IMPRESSION: 1. History of Crohn's disease, rule out dysplasia. 2. Internal hemorrhoids. PLAN: The results of the biopsies will be checked. Assuming there is no dysplasia, I would recommend a repeat colonoscopy in 3 years. She will be seen in the Spring of next year for followup. She was advised to continue her Pentasa at 1 gm t.i.d. and to continue to avoid all aspirin and NSAIDs long-term. She will call me sooner on a p.r.n. basis. MD CLAYTON Rice/DIMITRIOS / [id number] MTDD
== END 2023-01-06 09:10 | disposition home or self-care (01) ==
PROVIDERS: Nurse Practitioner; PCP Nurse Practitioner Primary Care; Visit Provider Internal Medicine
PROC: 0DJD8ZZ Inspection of Lower Intestinal Tract, Via Natural or Artificial Opening Endoscopic (ICD-10-PCS; CPT 45378; principal; 2023-01-06 07:30)
DX: Z12.11 Encounter for screening for malignant neoplasm of colon (principal); Z83.719 Family history of colon polyps, unspecified; K50.80 Crohn's disease of both small and large intestine without complications; K64.8 Other hemorrhoids; D50.9 Iron deficiency anemia, unspecified; Z79.899 Other long term (current) drug therapy; Z79.1 Long term (current) use of non-steroidal anti-inflammatories (NSAID)
CPT/HCPCS: 45380; 81025; 88305